=== PATIENT | female | born 1935 | race Caucasian/White ===

== ENCOUNTER 2022-09-25 08:02 | Outpatient (CLI) | payer MEDICARE ==
[2022-09-25] MEDS ORDERED: Iopamidol-370 76% 500 ML 1 ML ONE (13:24)
== END 2022-09-25 08:03 | disposition home or self-care (01) ==
LOC: BICCT 08:02
PROVIDERS: ATTEND Physician Assistant Medical
DX: K74.60 Unspecified cirrhosis of liver (principal); K86.2 Cyst of pancreas; R04.2 Hemoptysis; Z13.9 Encounter for screening, unspecified
CPT/HCPCS: 74178; 82565; Q9967